=== PATIENT | male | born 1940 | race African-American/Black ===

== ENCOUNTER 2016-10-24 22:23 | Emergency (ER) | payer OTHER ==
[~2016-10-24] VITALS: Ht 180.3 cm; Wt 81.7 kg
[~2016-10-24 22:23] MED LIST: BACTRIM DS TAB1 EACH PO; NORCO 5-325 TA1 EACH PO
[2016-10-24 22:28] VITALS: BP 153/60
[2016-10-24] MEDS ORDERED: ATORVASTATIN CA40 MG PO (22:57)
[2016-10-24] MEDS ORDERED: MIRALAX255 GM PO (22:58)
[2016-10-24] MEDS ORDERED: SENSIPAR60 MG PO (22:58)
[2016-10-24] MEDS ORDERED: CLEOCIN HCL150 MG PO (22:58)
== END 2016-10-24 23:01 | disposition short-term general hospital (02) ==
LOC: ER 22:23
DX: T82.590A Other mechanical complication of surgically created arteriovenous fistula, initial encounter (principal); K21.9 Gastro-esophageal reflux disease without esophagitis; K59.00 Constipation, unspecified; E11.22 Type 2 diabetes mellitus with diabetic chronic kidney disease; I12.0 Hypertensive chronic kidney disease with stage 5 chronic kidney disease or end stage renal disease; N18.6 End stage renal disease; E78.5 Hyperlipidemia, unspecified

== ENCOUNTER 2016-11-15 15:46 | Emergency (ER) | payer OTHER ==
[~2016-11-15] VITALS: Ht 175.3 cm; Wt 77.1 kg
--- NOTE | ~2016-11-15 | HC ---
[facility] [place] [address] CONSULTATION Name: LATASHAARINA AYALA Room #: DEP Anup#: [id number] Admission: 11/15/16 Attend Phys: Discharge: 11/15/16 Date of : 40 Report #: [id number] THIS REPORT FOR: //name// CC: Shin Gramajo DATE OF SERVICE: 11/15/2016 DATE OF CONSULTATION: 11/15/2016. HISTORY OF PRESENT ILLNESS: This is a 76-year-old male who has end-stage renal disease who dialyzes at [facility]. He apparently started having bleeding during dialysis today from a cannulation site on the arterial limb of his left thigh arteriovenous dialysis graft. He came to the emergency room here at [facility], and we were consulted to see the patient. PHYSICAL EXAMINATION: GENERAL: Upon my arrival, the patient was supine. EXTREMITIES: The left thigh graft was found to have an active bruit and thrill. There was an area on the arterial limb of the graft quite high up on the graft which had been repeatedly cannulated, and which was oozing slowly some bright red blood from the graft. The venous limb cannulation site had good hemostasis. PROCEDURE: After evaluating the patient and talking with them, I cleaned this area and injected some 1% lidocaine. I placed a 3-0 nylon [id number] suture with good hemostasis at that point. The graft continued to have adequate flow. DISCUSSION AND RECOMMENDATIONS: I reviewed with the emergency room physician that the patient is otherwise stable. He does not need admission for this. He can be discharged back to his usual living center and follow up at the dialysis unit for his additional dialysis. I did advise to the patient that they move their cannulation site so they are not continuously cannulating at the same site time and again as it promotes the destruction of the graft. The patient is otherwise stable. <ELECTRONICALLY SIGNED> By: Luther Gusman MD 11/18/16 [id number] 0006 Cyril Green MD /nt
[~2016-11-15 15:46] MED LIST changes: +ATORVASTATIN CA40 MG PO; +CLEOCIN HCL150 MG PO; +MIRALAX255 GM PO; +SENSIPAR60 MG PO
[2016-11-15 15:47] VITALS: BP 169/80
== END 2016-11-15 17:30 | disposition home or self-care (01) ==
LOC: ER 15:46 → EROBS 16:45 → ER 17:30
DX: T82.838A Hemorrhage due to vascular prosthetic devices, implants and grafts, initial encounter (principal); I12.0 Hypertensive chronic kidney disease with stage 5 chronic kidney disease or end stage renal disease; E11.22 Type 2 diabetes mellitus with diabetic chronic kidney disease; N18.6 End stage renal disease; E78.5 Hyperlipidemia, unspecified; F17.210 Nicotine dependence, cigarettes, uncomplicated; Z79.4 Long term (current) use of insulin; Z99.2 Dependence on renal dialysis; Y84.1 Kidney dialysis as the cause of abnormal reaction of the patient, or of later complication, without mention of misadventure at the time of the procedure; Y92.89 Other specified places as the place of occurrence of the external cause

== ENCOUNTER 2016-12-06 14:17 | Inpatient (IN) | payer OTHER ==
[~2016-12-06] VITALS: Ht 177.8 cm; Wt 73.5 kg
[2016-12-06] VITALS (22 sets, daily range): BP systolic 139–166; BP diastolic 48–82
--- NOTE | ~2016-12-06 | EKG ---
[address] [place] [address] ELECTROCARDIOGRAM REPORT Name: ARINA PAGAN Room #: 435-P ADM IN M.R.#: [id number] Admission: 12/06/16 Attend Phys: Pedro Corona MD Discharge: Date of : 40 Report #: [id number] THIS REPORT FOR: //name// [facility] ED Test Date: 2016-12-06 Test Time: 14:35:08 Pat Name: ARINA PAGAN Department: Room: 435 Gender: M Public Information Coordinator: JABIER : 1940 Requested By: Cuco Kruger Order Number: [id number] MD: Troy Forte Measurements Intervals [place] Rate: 101 P: 75 IA: 178 QRS: -47 QRSD: 93 T: 103 QT: 376 QTc: 488 Interpretive Statements Sinus tachycardia Multiple premature complexes, vent & supraven Probable left atrial enlargement Left anterior fascicular block Anteroseptal infarct, age indeterminate No previous ECG available for comparison Electronically Signed On 12-08-2016 22:09:23 CDT by Troy Forte [email or web address] <ELECTRONICALLY SIGNED> By: Troy Forte MD 12/08/16 2209 1435 1435 Troy Forte MD /[facility]
[2016-12-06 15:14] LABS: MCH 25.5 pg (26.0-34.0); RBC 1.71 mil/uL (4.50-6.00); RDW 19.5 % (10.5-14.5); WBC 19.2 thou/uL (4.0-11.0)
[2016-12-06 15:15] LABS: MANUAL DIFF YES
[2016-12-06 15:17] LABS: HEMATOCRIT 14.5 % (42.0-52.0); HEMOGLOBIN 4.3 gm/dL (14.0-18.0); PLATELET COUNT 1596 thou/uL (150-400)
[2016-12-06 15:27] LABS: ANION GAP 14 mmol/L (7-16); BUN 78 mg/dL (7-18); CALCIUM 8.9 mg/dL (8.5-10.1); CHLORIDE 101 mmol/L (98-107); CO2 23 mmol/L (21-32); CREATININE 14.7 mg/dL (0.7-1.3); GLUCOSE 115 mg/dL (74-106); POTASSIUM 4.9 mmol/L (3.5-5.1); SODIUM 138 mmol/L (136-145)
[2016-12-06 15:33] LABS: ALBUMIN 3.1 g/dL (3.4-5.0); ALKALINE PHOSPHATASE 96 U/L (46-116); DIRECT BILIRUBIN 0.1 mg/dL (<0.1-0.3); SGOT 16 U/L (15-37); SGPT 13 U/L (30-65); TOTAL BILIRUBIN 0.4 mg/dL (<0.1-1.0); TOTAL PROTEIN 7.2 g/dL (6.4-8.2); TROPONIN-I < 0.04 ng/mL (<0.04-0.07)
[2016-12-06 16:00] LABS: ABSOLUTE NEUTROPHILS 18.2 thou/uL (1.4-8.2); ANISOCYTOSIS 2+; TOTAL CELL COUNT 100
[2016-12-06 16:01] LABS: LARGE PLATELETS OCCASIONAL; POIKILOCYTOSIS 1+; POLYCHROMASIA OCCASIONAL; SCHISTOCYTES OCCASIONAL
[2016-12-06 16:02] LABS: HYPOCHROMASIA 1+
[2016-12-07] VITALS (54 sets, daily range): BP systolic 114–179; BP diastolic 45–99
[2016-12-07 08:03] LABS: RBC 2.46 mil/uL (4.50-6.00)
[2016-12-07 08:04] LABS: HEMATOCRIT 20.2 % (42.0-52.0); MCH 26.2 pg (26.0-34.0); MCHC 31.8 g/dL (28.0-37.0); MCV 82.2 fL (80.0-100.0); RDW 18.5 % (10.5-14.5)
[2016-12-07 08:13] LABS: ALBUMIN 2.9 g/dL (3.4-5.0); CALCIUM 8.5 mg/dL (8.5-10.1); TOTAL BILIRUBIN 0.4 mg/dL (<0.1-1.0); TOTAL PROTEIN 7.3 g/dL (6.4-8.2)
[2016-12-07 08:21] LABS: CREATININE 13.4 mg/dL (0.7-1.3)
[2016-12-07 08:29] LABS: HEMOGLOBIN 6.4 gm/dL (14.0-18.0)
[2016-12-07] MEDS ORDERED: RENAL CAPS SOFTG1 MG PO ×2 (08:41→08:47)
[2016-12-07] MEDS ORDERED: TYLENOL325 MG PO (08:41)
[2016-12-07] MEDS ORDERED: RENVELA800 MG PO (08:42)
[2016-12-07] MEDS ORDERED: MIRALAX17 GM PO (08:43)
[2016-12-07] MEDS ORDERED: SENNA8.6 MG PO (08:43)
[2016-12-07] MEDS ORDERED: SENSIPAR60 MG PO (08:44)
[2016-12-07] MEDS ORDERED: [UNRECOGNIZED DRUG - OTHER] PO (08:45)
[2016-12-07] MEDS ORDERED: EPOGEN10000 UNIT IV PUSH (08:52)
[2016-12-07] MEDS ORDERED: HECTOROL2 MCG/1 ML IV PUSH (08:58)
[2016-12-07] MEDS ORDERED: DIPHENHYDRAM50 MG/M2 IV PUSH (09:02)
[2016-12-07] MEDS ORDERED: VENOFER100 MG/51 IV PUSH (09:06)
[2016-12-08] VITALS (7 sets, daily range): BP systolic 131–164; BP diastolic 55–77
[2016-12-09 05:20] VITALS: BP 162/69
[2016-12-09 08:00] VITALS: BP 159/70
[2016-12-09 17:10] LABS: HEP B SURFACE Ab(ANTI-HBS Reactive (())
== END 2016-12-09 11:15 | DRG 682 ==
LOC: ER 14:17 → EROBS 17:02 → 4S 17:02 → ICU 18:43 → 4S 12-08 06:26
PROVIDERS: Internal Medicine Nephrology; Nurse Practitioner
PROC: 30233N1 Transfusion of Nonautologous Red Blood Cells into Peripheral Vein, Percutaneous Approach (ICD-10-PCS; principal; 2016-12-06)
PROC: 5A1D60Z (ICD-10-PCS; 2016-12-07)
DX: I12.0 Hypertensive chronic kidney disease with stage 5 chronic kidney disease or end stage renal disease (principal); N18.6 End stage renal disease; L89.623 Pressure ulcer of left heel, stage 3; K92.2 Gastrointestinal hemorrhage, unspecified; K21.9 Gastro-esophageal reflux disease without esophagitis; K59.00 Constipation, unspecified; E78.5 Hyperlipidemia, unspecified; E11.40 Type 2 diabetes mellitus with diabetic neuropathy, unspecified; E11.319 Type 2 diabetes mellitus with unspecified diabetic retinopathy without macular edema; I25.10 Atherosclerotic heart disease of native coronary artery without angina pectoris; D72.829 Elevated white blood cell count, unspecified; E11.22 Type 2 diabetes mellitus with diabetic chronic kidney disease; J44.9 Chronic obstructive pulmonary disease, unspecified; E11.51 Type 2 diabetes mellitus with diabetic peripheral angiopathy without gangrene; D63.8 Anemia in other chronic diseases classified elsewhere; Z89.612 Acquired absence of left leg above knee; Z79.899 Other long term (current) drug therapy; Z99.2 Dependence on renal dialysis
CPT/HCPCS: 10078; 32100